=== PATIENT | female | born 1955 | race Caucasian/White ===

== ENCOUNTER 2023-04-19 15:04 | Outpatient (CLI) | payer BC | END 2023-04-19 15:05 | disposition home or self-care (01) | LOC: CSHMAMMO 15:04 | PROVIDERS: ATTEND Family Medicine | DX: Z12.31 Encounter for screening mammogram for malignant neoplasm of breast (principal); Z80.3 Family history of malignant neoplasm of breast; Z91.89 Other specified personal risk factors, not elsewhere classified; Z85.820 Personal history of malignant melanoma of skin | CPT/HCPCS: 77063; 77067 ==

== ENCOUNTER 2024-04-22 12:37 | Outpatient (CLI) | payer BC | END 2024-04-22 12:38 | disposition home or self-care (01) | LOC: CSHMAMMO 12:37 | PROVIDERS: ATTEND Family Medicine | DX: Z12.31 Encounter for screening mammogram for malignant neoplasm of breast (principal); Z80.3 Family history of malignant neoplasm of breast; Z85.820 Personal history of malignant melanoma of skin; Z91.89 Other specified personal risk factors, not elsewhere classified | CPT/HCPCS: 77063; 77067 ==

== ENCOUNTER 2024-06-05 12:27 | Outpatient (CLI) | payer MEDICARE ==
[~2024-06-05 12:27] MED LIST: Iopamidol 300 61% 100 ML VIAL FS ONE
== END 2024-06-05 12:28 | disposition home or self-care (01) ==
LOC: CSHCT 12:27
PROVIDERS: ATTEND Internal Medicine Gastroenterology
DX: K82.4 Cholesterolosis of gallbladder (principal); R10.12 Left upper quadrant pain; R10.13 Epigastric pain; N32.89 Other specified disorders of bladder; K59.00 Constipation, unspecified
CPT/HCPCS: 74177; 82565